=== PATIENT | male | born 1975 | race Caucasian/White ===

== ENCOUNTER 2019-08-28 12:32 | Outpatient (REF) | payer OTHER, SELFPAY ==
[2019-08-28 13:11] LABS: Abs Immature Grans 0.01 k/cumm (0.0-0.09); Absolute Basophil Count 0.03 k/cumm (0.0-0.2); Absolute Eosinophil Count 0.09 k/cumm (0.0-0.7); Absolute Lymphocyte Count 2.44 k/cumm (1.2-3.4); Absolute Monocyte Count 0.67 k/cumm (0.11-0.7); Absolute Neutrophil Count 3.67 k/cumm (1.2-6.7); Basophils % 0.4; Eosinophils % 1.3; HCT 42.2 % (40.0-50.0); HGB 14.5 g/dL (13.5-17.5); Immature Grans % 0.1; Lymphocytes % 35.3; Mean Corp. HGB Concentration 34.4 g/dL (32.0-36.0); Mean Corpuscular Hemoglobin 30.1 pg (27.0-33.0); Mean Corpuscular Volume 87.7 fL (80-95); Mean Platelet Volume 10.4 fL (8.0-11.0); Monocytes % 9.7; Neutrophils % 53.2; Platelet Count 294 x1000/uL (130-400); RBC 4.81 m/cumm (4.50-6.00); RBC Distribution Width 12.9 % (11.8-14.1); White Blood Cell Count 6.91 k/cumm (4.4-10.8)
[2019-08-28 13:36] LABS: ALT 36 U/L (16-63); AST 19 U/L (15-37); Alkaline Phosphatase 54 U/L (46-116); Anion Gap 10.9 mmol/L (3-11); BUN 13 mg/dL (7-18); Bilirubin, Total 0.5 mg/dL (0.2-1.0); CO2 25.1 mmol/L (21.0-32.0); CREATININE 0.92 mg/dL (0.70-1.30); Calcium 9.3 mg/dL (8.5-10.1); Chloride 106 mmol/L (98-107); Glucose 97 mg/dL (70-100); Potassium 3.8 mmol/L (3.5-5.1); Sodium 142 mmol/L (136-145); TSH (W/Ref FT4) 4.16 uIU/mL (0.36-3.74); Total Protein 6.9 g/dL (6.4-8.2)
[2019-08-28 13:56] LABS: FREE T4 0.97 ng/dL (0.76-1.46)
[2019-08-29 10:54] LABS: Lyme Ab w Rflx to Lyme Confirm Negative
[2019-08-30 17:28] LABS: Anaplasma phagocytophilum Negative (Negative); B. miyamotoi PCR Negative (Negative); Babesia divergens/MO-1 Negative (Negative); Babesia duncani Negative (Negative); Babesia microti Negative (Negative); Ehrlichia chaffeensis Negative (Negative); Ehrlichia ewingii/canis Negative (Negative); Ehrlichia muris eauclairensis Negative (Negative)
== END 2019-08-28 12:52 ==
LOC: NCHCN 12:32
PROVIDERS: PCP Nurse Practitioner Family; Visit Provider Internal Medicine
DX: M25.50 Pain in unspecified joint (principal); R53.81 Other malaise; W57.XXXA Bitten or stung by nonvenomous insect and other nonvenomous arthropods, initial encounter; T14.8XXA Other injury of unspecified body region, initial encounter
CPT/HCPCS: 80053; 87798; 84439; 84443; 85025; 86618

== ENCOUNTER → 2021-10-14 00:16 | Outpatient (CLI) | payer OTHER, SELFPAY ==
--- NOTE | 2021-10-14 14:30 | DI.RAD_ITS ---
Exam(s) XR CERVICAL SPINE COMP 4-5V EXAM: XR CERVICAL SPINE COMP 4-5V CLINICAL HISTORY: LT SHOULDER PAIN, M25.512. TECHNIQUE: 2D digital imaging was performed. COMPARISON: No exams were available for comparison FINDINGS: Is no evidence of fracture, listhesis, nor offset of the spinal laminar line. There is moderate disc space narrowing at C4-5 and C5-6 levels. C6-7 level exhibits normal disc heig ht. There are mild degenerative facet joint changes. On the oblique views there are bilateral Lusch ka joint osteophytes noted at C4-5, C5-6, and C6-7 levels. There are no cervical ribs. No osseous l esions. IMPRESSION: Multilevel degenerative disc disease as described above. DATA REPOSITORY: RADIATION DOSE DELIVERED:
== END ==
PROVIDERS: PCP Nurse Practitioner Family; Visit Provider Family Medicine
DX: M50.321 Other cervical disc degeneration at C4-C5 level (principal); M50.322 Other cervical disc degeneration at C5-C6 level; M47.812 Spondylosis without myelopathy or radiculopathy, cervical region; M25.512 Pain in left shoulder
CPT/HCPCS: 72050

== ENCOUNTER 2022-05-05 18:57 | Outpatient (CLI) | payer OTHER, SELFPAY ==
--- NOTE | 2022-05-05 | DI.RAD_ITS ---
Exam(s) XR WRIST LT COMP NAVICULAR EXAM: XR WRIST LT COMP NAVICULAR CLINICAL HISTORY: LT WRIST PAIN TO NAVICULAR, ATTENTION TO 2ND FINGER. TECHNIQUE: 2D digital imaging was performed. Four views. COMPARISON: CR XR HAND LT COMPLETE from 05/05/2022 FINDINGS: BONES: No acute fracture is present. No bony destructive lesion is seen. JOINTS: The carpal bones are normally aligned. SOFT TISSUE: Swelling over posterior wrist and metacarpal region. IMPRESSION: Posterior soft tissue swelling. No fracture identified. DATA REPOSITORY: RADIATION DOSE DELIVERED:
--- NOTE | 2022-05-05 | DI.RAD_ITS ---
Exam(s) XR HAND LT COMPLETE EXAM: XR HAND LT COMPLETE CLINICAL HISTORY: LT WRIST PAIN TO NAVICULAR, ATTENTION TO 2ND FINGER. TECHNIQUE: 2D digital imaging was performed. Three views. COMPARISON: No exams were available for comparison FINDINGS: BONES: No acute fracture is present. No bony destructive lesion is seen. JOINTS: No dislocation present. SOFT TISSUE: Soft tissue swelling over dorsum of hand. No gas collection or foreign body. IMPRESSION: Dorsal soft tissue swelling DATA REPOSITORY: RADIATION DOSE DELIVERED:
== END 2022-05-05 19:17 ==
LOC: DI 18:59
PROVIDERS: PCP Nurse Practitioner Family; Visit Provider Nurse Practitioner Family
DX: M79.89 Other specified soft tissue disorders (principal); M25.532 Pain in left wrist; S60.222A Contusion of left hand, initial encounter; X58.XXXA Exposure to other specified factors, initial encounter
CPT/HCPCS: 73110; 73130

== ENCOUNTER 2023-04-09 16:23 | Emergency (ER) | payer OTHER, SELFPAY ==
[2023-04-09 16:27] VITALS: BP 142/78; PULSE 58; RESP 18; TEMP 36.3; O2SAT 100
--- NOTE | 2023-04-09 16:30 | DI.RAD_ITS ---
Exam(s) XR TIB/FIB LT EXAM: XR TIB/FIB LT CLINICAL HISTORY: Calf pain. TECHNIQUE: 2D digital imaging was performed of the left tibia and fibula. Four images were obtained. AP and lateral views were obtained. COMPARISON: No exams were available for comparison FINDINGS: BONES: No acute fracture is present. No bony destructive lesion is seen. Visualized portion of knee a nd ankle joints are unremarkable. SOFT TISSUE: Normal. IMPRESSION: Unremarkable radiographs of the left tibia and fibula. DATA REPOSITORY: RADIATION DOSE DELIVERED:
--- NOTE | 2023-04-09 16:30 | W.ED.GENAD ---
Discharge Plan Disposition Patient Disposition: Home Discharge Details Clinical Impression: Traumatic rupture of left Achilles tendon Primary Care Provider: Terra Whatley ED Provider: Andre Cortez Home Meds and New Rx's Prescriptions: No Action No Known Home Meds Discharge Instructions Additional Instructions: You were seen in the emergency department for your ankle pain. Your exam showed an Achilles tendon rupture for which you should be nonweightbearing on your left lower extremity. Please use crutches. Please follow-up with orthopedics later this week. If you develop any numbness or tingling in your toes please return to the emergency department. For your pain please take medications as follows: 1. Take acetaminophen (Tylenol), 1,000 mg (two 500 mg tabs) every 6 hours 2. Take ibuprofen (Advil), 400 mg every 6 hours. Medical Decision Making This is an overall well-appearing normothermic and not tachycardic 48-year-old male with concern for Achilles tendon rupture given positive Junior test with patient's left ankle does not plantarflex when he is laying prone and his left calf is squeezed. He has been on no recent fluoroquinolones. His bedside ultrasound is also consistent with left Achilles tendon rupture. We will touch base with orthopedics following plain films to ensure that there is not a concurrent osseous abnormality. Anticipate nonweightbearing with crutches and walking boot with outpatient orthopedic referral. Will provide oral analgesia using acetaminophen and ibuprofen. No head strike to suggest benefit from CT head. No neck pain to suggest benefit from CT cervical spine. No proximal tibial tenderness to suggest Maisonneuve injury. No pain out of proportion to suggest necrotizing soft tissue infection. Compartments soft so not concern for compartment syndrome. No surrounding erythema to suggest cellulitis. No reported shortness of breath nor chest trauma and no hypoxia so my suspicion is exceedingly low for pneumothorax. I spoke with Dr. Ghotra from orthopedics who advised placing patient in a short leg splint with 45 degrees of plantarflexion. Patient reports that he has crutches at home and will make him nonweightbearing until he follows up with orthopedics. Please see my separate note concerning splint placement. Patient had his pain well managed on oral analgesia using acetaminophen and ibuprofen. As result we will defer oral opiates at this point in time to avoid exposing the patient to unnecessary side effects. Health community health advisor Miesha will have patient seen in follow-up by orthopedics. HPI General Date/Time Provider Initiated Documentation: 04/09/23 16:30. HPI Narrative: This is a previously healthy 48-year-old male with no history of allergies nor any medications in the emergency department in the setting of acute left ankle pain. Patient reports that he was walking in the [place] today. He inadvertently caught his left foot on a wet root causing him to slip. He forcefully dorsiflex his left foot. He did not hit his head. He is not feeling short of breath. He was in his usual state of health earlier today. He was wearing hiking boots at the time that his injury occurred. He has been ambulating with an antalgic gait subsequently. Related Data Home Medications Medication Instructions Recorded Confirmed Unknown [No Known Home Meds] 06/21/22 04/09/23 Allergies Allergy/AdvReac Type Severity Reaction Status Date / Time No Known Allergies Allergy Verified 06/21/22 13:12 General Stated Complaint: Orthopedic VENUS: 4 PFSH All Active Problems (Updated 04/09/23 @ 16:57 by Andre Cortez MD) Traumatic rupture of left Achilles tendon (Acute) Left hand pain (Acute) Tobacco abuse (Acute) Medical History Alcohol abuse Onychomycosis of toenail Subclinical hypothyroidism Thoracic back pain Social History Smoking/Tobacco Use Status: Never Smoking risk assessment performed?: Yes Alcohol Intake: never Drug use: Daily Substance use type: marijuana Do you feel safe at home: Yes Do you feel safe in your relationship?: Yes Exam Narrative Exam Narrative: General: Well-appearing in no acute distress speaking in complete sentences. Head: Normocephalic, atraumatic. Eye: Pupils equal, round reactive to light. Extraocular eye movements intact. No conjunctival injection. No scleral icterus. Ear, nose, mouth, throat: Grossly normal inspection. Normal voice, handling secretions normally. Neck: Trachea midline. Cardiovascular: Well-perfused distal extremities. Respiratory: Nonlabored respiration. Gastrointestinal: Nondistended abdomen. Musculoskeletal: Left lower extremity with no obvious deformities nor external signs of trauma. No ecchymoses or lacerations. There is a palpable deficit in the left Achilles tendon approximately 3 cm proximal to the calcaneus. Patient has a positive Junior test. With patient laying prone his left foot does not plantarflex when I squeeze his left calf. Patient has limited ability to dorsi and plantarflex secondary to pain on the left. Left foot warm well perfused with 2+ PT and DP pulses. Cap refill less than 2 seconds in the left toes. Patient has intact sensation in the dorsal webspace between his great and second toes on the left. Left lower extremity with no tenderness throughout quadriceps, knee, and proximal tibia. Soft compartments left lower extremity. Skin: Normal for age and race, grossly normal temperature and turgor. No acute rash. Neurologic: Alert and appropriate, no apparent acute deficits. Psychiatric: Mood and manner are appropriate. Grooming and personal hygiene are appropriate. Course Vital Signs Vital signs: Vital Signs Temperature 36.3 C L 04/09/23 16:27 Pulse 58 L 04/09/23 16:27 Respiratory Rate 18 04/09/23 16:27 Blood Pressure 142/78 H 04/09/23 16:27 Pulse Oximetry 100 04/09/23 16:27 Temperature 36.3 C L 04/09/23 16:27 Pulse 58 L 04/09/23 16:27 Respiratory Rate 18 04/09/23 16:27 Respiratory Effort Normal, Non-Labored 04/09/23 16:29 Blood Pressure 142/78 H 04/09/23 16:27 Pulse Oximetry 100 04/09/23 16:27 Oxygen Delivery Method Room Air 04/09/23 16:27 Oxygen Flow Rate 0 04/09/23 16:27 Pain Level 5 04/09/23 16:27 Procedures Orthopedic Splinting/Casting Injury #1: Side: left Lower Extremity Injury Location: lower leg Lower Extremity Immobilizer: posterior splint Other Orthopedic Equipment: crutches POCUS Exam (ED) Limited Soft Tissue Exam DATE OF EXAM: 04/09/23 TIME OF EXAM: 16:50 LOCATION OF EXAM: Lower extremity/left REASON FOR EXAM: Pain Exam Complete DIFFERENTIAL DIAGNOSES: Anechoic collection of fluid adjacent to linear mixed echogenicity structures that appear consistent with tendon. Exam concerning for Achilles tendon rupture.
[2023-04-09] MEDS: Acetaminophen 500 MG TAB 1000 MG PO (16:59)
[2023-04-09] MEDS: Ibuprofen 600 MG TAB PO (16:59)
--- NOTE | 2023-04-09 17:22 | DI.VRAD_ITS ---
PROCEDURE INFORMATION: Exam: XR Left Tibia and Fibula Exam date and time: 04/09/2023 5:05 PM Age: 48 years old Clinical indication: Other: Lower tib/fib/ankle pain, calf pain TECHNIQUE: Imaging protocol: Radiologic exam of the left tibia and fibula. Views: 2 views. COMPARISON: No relevant prior studies available. FINDINGS: Bones/joints: No fracture or dislocation. Joint spaces are unremarkable. Soft tissues: No significant abnormality IMPRESSION: No acute findings. Dictated and Authenticated by: Eloy Ceron MD. Ordering:SONAL Powell MD
[2023-04-09 17:56] VITALS: BP 141/94; PULSE 54; RESP 16; TEMP 36.4; O2SAT 99
--- NOTE | 2023-04-09 18:04 | NUR.NOTE ---
Nursing Note: ~ 1745 Dr Cortez at pt's bedside, pt repositioned self prone position, Dr Cortez splinted and aced wrapped pt's LLE, CMS intact;pt tolerated procedure well
== END 2023-04-09 18:18 | disposition home or self-care (01) ==
PROVIDERS: Emergency Provider Emergency Medicine; PCP Nurse Practitioner Family
DX: S86.012A Strain of left Achilles tendon, initial encounter (principal); W01.0XXA Fall on same level from slipping, tripping and stumbling without subsequent striking against object, initial encounter; Y93.01 Activity, walking, marching and hiking; Y92.828 Other wilderness area as the place of occurrence of the external cause
CPT/HCPCS: 29515; 76882; 99284; 73590; 99283

== ENCOUNTER 2023-04-20 01:55 | Outpatient (CLI) | payer OTHER, SELFPAY ==
--- NOTE | 2023-04-20 08:30 | DI.MRI_ITS ---
Exam(s) MR LOWER JOINT LT WO EXAM: MR LOWER JOINT LT WO CLINICAL HISTORY: PAIN, TRAUMATIC RUPTURE LT ACHILLES TENDON, S86.012A TECHNIQUE: Multiplanar multisequence MRI was performed without intravenous contrast. COMPARISON: CR,XR XR TIB/FIB LT from 04/09/2023 FINDINGS: BONES/JOINTS: No fracture or contusion pattern. No bone lesions identified. The talar dome is smooth. The ankle mortise is maintained. No joint effusion is present. LIGAMENTS: The tibiofibular and calcaneofibular ligaments are intact. The talofibular ligaments are i ntact. The deltoid ligament is intact. The syndesmosis is unremarkable. Sinus tarsi is normal. MUSCULOTENDINOUS STRUCTURES: Achilles tendon: There is a complete tear of the Achilles tendon 4.2 cm proximal to the insertion sit e onto the calcaneus. There is a small gap between the tendon ends of less than 1 cm. There is surr ounding edema. Plantar fascia: Visualized plantar fascia is unremarkable. Anterior Extensor tendons: Unremarkable. Posterior Tibialis: Unremarkable. Flexor Digitorum longus: Unremarkable. Flexor Hallucis longus: Unremarkable. Peroneus longus: Unremarkable. Peroneus brevis:Unremarkable. SOFT TISSUES: There is edema seen in the soft tissues posteriorly are around the Achilles tendon tear . OTHER FINDINGS: None. IMPRESSION: Complete tear of the Achilles tendon 4.2 cm from its insertion site onto the proximal calcaneus. The re is a gap of less than 1 cm between the tendon ends.There is associated edema in the surrounding so ft tissues. DATA REPOSITORY:
== END 2023-04-20 02:15 ==
LOC: DI 01:55
PROVIDERS: PCP Family Medicine; Visit Provider Student in an Organized Health Care Education/Training Program
DX: S86.012A Strain of left Achilles tendon, initial encounter (principal); X58.XXXA Exposure to other specified factors, initial encounter
CPT/HCPCS: 73721

== ENCOUNTER 2024-04-04 09:13 | Outpatient (REF) | payer OTHER, SELFPAY ==
[2024-04-04 14:54] LABS: Calculated LDL 127 mg/dL (<100); Cholesterol 201 mg/dL (<200); Glucose 105 mg/dL (74-106); HDL Cholesterol 59 mg/dL (40-60); TSH 5.06 uIU/Ml (0.36-3.74); Triglyceride 76 mg/dL (<150)
[2024-04-04 15:11] LABS: FREE T4 0.95 ng/dL (0.76-1.46)
[2024-04-11 16:58] LABS: Testosterone, Free 16.6 ng/dL (4.26-16.4); Testosterone, Total 606 ng/dL (240-950)
== END 2024-04-04 09:14 | disposition home or self-care (01) ==
LOC: NCHCN 09:13
PROVIDERS: PCP Family Medicine; Visit Provider Family Medicine
DX: Z00.00 Encounter for general adult medical examination without abnormal findings (principal); E02 Subclinical iodine-deficiency hypothyroidism; E78.5 Hyperlipidemia, unspecified; F52.21 Male erectile disorder; R79.89 Other specified abnormal findings of blood chemistry
CPT/HCPCS: 80061; 82947; 84402; 84403; 84439; 84443

== ENCOUNTER 2025-04-10 09:22 | Outpatient (REF) | payer OTHER, SELFPAY ==
[2025-04-10 14:44] LABS: TSH (W/Ref FT4) 3.41 uIU/mL (0.36-3.74)
[2025-04-10 23:25] LABS: Hepatitis C Ab w Rflx HCV PCR Negative (Negative)
[2025-04-10 23:28] LABS: HIV-1/2 Ag & Ab Screen Negative (Negative)
== END 2025-04-10 09:23 | disposition home or self-care (01) ==
LOC: NCHCN 09:22
PROVIDERS: PCP Family Medicine; Visit Provider Family Medicine
DX: Z00.00 Encounter for general adult medical examination without abnormal findings (principal); E02 Subclinical iodine-deficiency hypothyroidism
CPT/HCPCS: 86803; 87389; 84443

== ENCOUNTER 2025-07-05 16:49 | Emergency (ER) | payer OTHER, SELFPAY ==
[2025-07-05 16:52] VITALS: BP 149/91; PULSE 58; RESP 16; TEMP 36.8; O2SAT 97
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
[2025-07-05] MEDS: oxyCODONE 5 MG TAB PO ×2 (18:16→21:20)
[2025-07-05] MEDS: Ibuprofen 400 MG TAB PO (18:16)
[2025-07-05] MEDS: Acetaminophen 500 MG TAB 1000 MG PO (18:16)
--- NOTE | 2025-07-05 18:32 | DI.RAD_ITS ---
Exam(s) XR FOOT LT COMPLETE EXAM: XR FOOT LT COMPLETE CLINICAL HISTORY: fracture. TECHNIQUE: 2D digital imaging was performed of the left foot. Three images were obtained. AP, oblique and lateral views were obtained. COMPARISON: CT CT LOWER EXTREMITY LT WO from 07/05/2025 FINDINGS: BONES: There is again seen a comminuted intra-articular displaced fracture of the proximal 1st metatarsal. There is also nondisplaced fracture through the distal metaphysis of the 2nd metatarsal. There are findings suspicious for fracture of the lateral aspect of the head of the proximal phalanx of the 5th toe. JOINTS: No dislocation present. SOFT TISSUE: There is soft tissue swelling of the forefoot. IMPRESSION: Fractures involving the 1st and 2nd metatarsals as described above. Question of a fracture involving the head of the proximal phalanx of the 5th toe. DATA REPOSITORY: RADIATION DOSE DELIVERED:
== END 2025-07-05 21:20 | disposition home or self-care (01) ==
PROVIDERS: Emergency Provider Physician Assistant; PCP Family Medicine
DX: S92.312A Displaced fracture of first metatarsal bone, left foot, initial encounter for closed fracture (principal); S92.322A Displaced fracture of second metatarsal bone, left foot, initial encounter for closed fracture; W22.8XXA Striking against or struck by other objects, initial encounter; Y93.55 Activity, bike riding
CPT/HCPCS: 99284 ×2; 29515; 73630; 73700

== ENCOUNTER 2025-07-09 12:04 | Day surgery (SDC) | payer OTHER, SELFPAY ==
[2025-07-09] VITALS (15 sets, daily range): BP systolic 121–136; BP diastolic 74–87; PULSE 41–51; RESP 9–19; TEMP 36.1–36.4; O2SAT 94–98; BMI 34.2
[2025-07-09] MEDS: Acetaminophen 500 MG TAB 1000 MG PO (12:57)
[2025-07-09] MEDS: Celecoxib 200 MG CAP 400 MG PO (12:57)
[2025-07-09] MEDS: Lactated Ringers 1,000 ML 80 ML IV (13:10)
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
--- NOTE | 2025-07-09 13:30 | DI.RAD_ITS ---
Exam(s) XR FOOT LT LIMITED EXAM: XR FOOT LT LIMITED CLINICAL HISTORY: LEFT FOOT FRACTURE. TECHNIQUE: 2D and realtime digital imaging was performed. COMPARISON: CR XR FOOT LT COMPLETE from 07/05/2025 FINDINGS: Hard copy images show placement of a fixation plate the across the 1st metatarsal for fracture fixation. The alignment is now anatomic. Please see procedure note for details. Fluoro time: 60seconds RADIATION DOSE DELIVERED: [place] Landa=1.31 mGy
[2025-07-09] MEDS: ceFAZolin 2 GM/50 ML BAG IVPB (13:58)
[2025-07-09] MEDS: TRANEXAMIC ACID/SOD. CHL. 1,000 MG/100 ML BAG 600 MG IVPB (14:04)
[2025-07-09] MEDS: Bupivacaine 0.25% Pres-Free W/EPI 30 ML VIAL (15:55)
--- NOTE | 2025-07-09 16:14 | W.PM.DSUDISC ---
Date of service: 07/09/25 Discharge Plan Disposition Patient Disposition: Home Condition: Good Discharge Details Reason For Visit: Left First Metatarsal Fracture Attending Provider: David Ghotra Primary Care Provider: Alek Serrano Home Meds and New Rx's Prescriptions: New aspirin 81 mg tablet,delayed release (DR/EC) 81 mg PO BID Qty: 30 0RF acetaminophen 500 mg tablet 500 mg PO Q6H PRN PRN (Reason: pain) Qty: 60 3RF ibuprofen 600 mg tablet 600 mg PO TID PRN (Reason: pain) Qty: 90 3RF oxycodone 5 mg tablet 5 mg PO Q6H PRN (Reason: pain) Qty: 10 0RF Continued acetaminophen [Acetaminophen Extra Strength] 500 mg tablet 500 mg PO Q6H PRN Patient Comments: 1000 mg Q 6h ibuprofen [Advil] 200 mg tablet 200 mg PO Q6H Discharge Instructions Additional Instructions: 1st Metatarsal ORIF Discharge Instructions Activity: You are NON WEIGHT BEARING. You should keep the leg elevated as much as possible. You may wiggle your toes and move your hip and knee. Dressings: You should keep your splint clean and dry. Do NOT get wet or dirty. If you have issues with your splint, please call the office at [phone] or the hospital after hours. Medications: - You should take Tylenol and Ibuprofen around the clock for baseline pain. - You have been prescribed a stronger narcotic for breakthrough pain. - You should take a Baby Aspirin (81mg) twice a day for blood clot prevention. Follow-up: 2 weeks Stand Alone Forms: Anesthesia Discharge Kathy Waters (DSU) Equipment/Supplies: Non-Weight Bearing Crutches Activity:: Elevate Remove Dressings/Wound Care:: Do Not Remove Shower/Bathe:: Cover Diet:: As Tolerated Discharge Orders Discharge Orders: Discharge Order (Routine); Ordered 07/09/25 Ordered By: David Ghotra DS: Diagnosis Discharge Diagnosis (1) Displaced fracture of first metatarsal bone, left foot, initial encounter for closed fracture: Status: Acute
--- NOTE | 2025-07-09 16:31 | W.PM.OP ---
Operative Note Operative Note PRE-OP DIAGNOSIS: Left 1st Metatarsal Fracture POST-OP DIAGNOSIS: same PROCEDURE: Open Reduction and Internal Fixation of Left First Metatarsal Fracture SURGEON: David Ghotra [employer] WORKER: Joan Salomon ANESTHESIA TYPE: General LMA/ETT Refer to Anesthesia Record ESTIMATED BLOOD LOSS: 20 PATHOLOGY: none sent TOURNIQUET TIME: 0 COMPLICATIONS: None Patient was transported to: PACU Patient's condition: stable Implants: Synthes 2.7mm T-plate Indications: Andre is an active 50 year old who suffered a comminuted, intra-articular fracture of the first metatarsal of the left foot. I reviewed the possible treatment options and given the fracture pattern and charachteristics, I recommended operative fixation. I discussed the technical details of the surgery. I reviewed the risks such as bleeding, infection, pain, stiffness, malunion, nonunion, hardware prominence, hardware faiilure, arthritis, damage to nerves and vessels, blood clot. Despite these risks, he agreed to proceed. Findings: There was a comminuted fracture of the first metatarsal with a split at the level of the joint with 2 primary components which was reduced with a lag screw. The remainder of the fracture was then secured with a 2.7 mm T plate. Procedure Description: Andre was greeted in the preoperative area. Consent was reviewed and signed. He was transferred to the operating room table. General anesthesia was administered. All bony prominences were well padded. Arms were placed out to the side, padded, and secured. A single dose of TXA, 1 gram, was then administered IV. Prophylactic antibiotics, Cefazolin 2 grams, was given for prophylactic antibiotics. A timeout was performed for safe surgery. The left leg was prepped with Chloraprep. The leg was draped with a stockinette and extremity drape. The proposed incision was drawn on the dorsal medial aspect of the left foot medial to the EHL tendon. This proposed surgical site was then injected with 0.25% bupivacaine with epinephrine. The skin was incised sharply and taken down to subcutaneous tissue there is notable edema within the soft tissues. The interval just medial to the extensor houses longus of utilized to get down to bone. The deeper fascia was incised. Crossing venous structures were cauterized. Fracture site over the dorsal?proximal aspect of the first metatarsal was identified and a jarquin elevator was utilized to expose the dorsal medial aspect of the first metatarsal shaft. There was a defect in the capsule of the first TMT joint. This was elevated back to expose the medial surface of the first TMT joint. The dorsal segment of the proximal fragment the first metatarsal was quite unstable whereas the plantar segment was still affixed in anatomic position to the medial cuneiform through likely plantar ligaments. The fracture line which had an apex dorsal deformity was also identified and periosteal tissue was elevated back for exposure of the fracture ends for reduction management. The joint distractor was placed to decompress the first TMT joint. A K wire is placed in the medial cuneiform and also within the diaphysis of the first metatarsal and distraction was placed across the first TMT joint. This allowed the manipulation of the proximal fragment the first metatarsal. The plantar segment did not displace very much as it was still attached plantar ligaments but was able to be manipulated enough to identify its edge. I then used a K wire to help joystick to manipulate the dorsal fragment back onto the base fragment and then secured it with a K wire into the plantar segment. This appeared to be reduced. X-ray confirmed appropriate positioning. I then placed a 2.4 millimeter screw in lag fashion to lag these 2 pieces together. This had excellent purchase. I then used a 2.7 mm T plate to secure the remainder of the fracture fragments. This was placed on the bone and x-rays taken. This showed to be 1 hole too long and therefore 1 hole was cut and the edges were smoothed. I contoured the proximal T portion of the plate to fit the curve of the base of the first metatarsal. The remainder of the fracture was reduced utilizing the single fracture line dorsally as the guide. This was manual manipulated and reduced into position and held with a crossing K wire. The T plate was then placed onto the bone into what appeared to be of appropriate position. X-ray was used to confirm appropriate positioning of the plate. With this now position was held and proximal screws were placed. These were nonlocking screws, 2.7 mm, placed in attempts to grab the dorsal and plantar proximal fragments together securing the base of the first metatarsal for security of the first TMT joint. These had excellent purchase into the bone. X-ray once again confirmed that these were not violating the first TMT joint and were appropriate length. 3 additional screws were placed distally. There were 2 cortical 2.7 millimeter screws placed as well as a single 2.7 mm locking screw. Final x-rays were obtained which showed appropriate reduction without joint penetration and with appropriate screw length. The wound was then thoroughly irrigated. Deep tissues were injected with 0.25% bupivacaine with epinephrine. Some of the fascia and capsule of the first MTP joint was closed with #0 Vicryl. Deep tissue was closed with 2-0 Vicryl. Skin was closed with 4-0 nylon. Wounds were dressed with Xeroform, 4 x 4's, ABD, gauze, Webril. He is then placed into a short posterior leg splint. At the end of the case, all counts were correct. Andre tolerated the procedure well without known complication and was taken to the PACU for recovery. He will remain nonweightbearing with a splint. Anticoagulation of aspirin 81 mg twice daily will begin tomorrow. He should keep the leg elevated. X-rays in 2 weeks with likely transition to fracture walker boot. Date of Procedure: 07/09/25
--- NOTE | 2025-07-09 16:45 | W.ANESPOSTOP ---
Postoperative Evaluation Date, Time and Location Date Performed: 07/09/25 Time Performed: 16:45 Patient Location: Day Surgery Unit Vital Signs Most Recent Imported Vital Signs: Most Recent Vital Signs Temp Pulse Resp BP Pulse Ox 36.3 C L 51 L 11 L 131/78 95 07/09/25 16:43 07/09/25 16:31 07/09/25 16:31 07/09/25 16:31 07/09/25 16:31 Pain Score Most Recent Pain Score: Most Recent Pain Score Pain Level 4 07/09/25 16:43 Assessment Mental Status: Awake (Alert & Oriented to Patient Baseline) Airway and Respiratory Function: Patent airway with normal (patient baseline) respiratory exam Cardiovascular Function: Hemodynamically Stable Hydration Status: Adequately Hydrated Nausea & Vomiting: No Nausea or Vomiting Pain: Pain is Moderate or Severe Postoperative Pain Management: Pain being addressed with medication Peripheral Nerve Block: Patient did not receive a nerve block
[2025-07-09] MEDS: oxyCODONE 5 MG TAB PO (17:00)
--- NOTE | 2025-07-11 11:26 | NUR.NOTE ---
Accessed Pt chart to give phone number to [facility].
== END 2025-07-09 18:15 | disposition home or self-care (01) ==
PROVIDERS: PCP Family Medicine; Visit Provider Student in an Organized Health Care Education/Training Program
PROC: (CPT 28485; principal; 2025-07-09 15:15)
DX: S92.312A Displaced fracture of first metatarsal bone, left foot, initial encounter for closed fracture (principal); F10.10 Alcohol abuse, uncomplicated; F17.290 Nicotine dependence, other tobacco product, uncomplicated; F12.90 Cannabis use, unspecified, uncomplicated; B35.1 Tinea unguium; W22.8XXA Striking against or struck by other objects, initial encounter; Y93.55 Activity, bike riding
CPT/HCPCS: 28485; 76000; 73620; J0690; J1100; J2003; J2250; J2405; J2704; J3010

== ENCOUNTER 2025-07-22 15:00 | Outpatient (CLI) | payer OTHER, SELFPAY ==
--- NOTE | 2025-07-22 14:15 | DI.RAD_ITS ---
Exam(s) XR FOOT LT COMPLETE EXAM: XR FOOT LT COMPLETE CLINICAL HISTORY: 1ST POST OP S/P ORIF 1ST MT FX. TECHNIQUE: 2D digital imaging was performed. Three images were obtained. AP, lateral and oblique views were obtained. COMPARISON: CR XR FOOT LT COMPLETE from 07/05/2025 XA XR FOOT LT LIMITED from 07/09/2025 FINDINGS: BONES: There are stable post operative changes of reduction and internal fixation of the 1st metatarsal fracture present. The alignment is near anatomic. There is no significant change in alignment of the fracture involving the distal metaphysis of the 2nd metatarsal. The osseous fragments adjacent to the head of the proximal phalanx of the 5th toe are also stable. No new fracture or dislocation. JOINTS: The joint spaces are well maintained. SOFT TISSUE: There is soft tissue swelling of the midfoot. IMPRESSION: 1. Stable alignment of the 1st metatarsal fracture in the orthopedic hardware. 2. Stable fracture involving the 2nd metatarsal. 3. Stable osseous densities adjacent to the head of the proximal phalanx of the 5th toe. DATA REPOSITORY: RADIATION DOSE DELIVERED:
== END 2025-07-22 15:01 | disposition home or self-care (01) ==
LOC: DIORS 15:00
PROVIDERS: PCP Family Medicine; Visit Provider Student in an Organized Health Care Education/Training Program
DX: S92.312A Displaced fracture of first metatarsal bone, left foot, initial encounter for closed fracture (principal)
CPT/HCPCS: 73630

== ENCOUNTER 2025-08-19 15:17 | Outpatient (CLI) | payer OTHER, SELFPAY ==
--- NOTE | 2025-08-19 14:00 | DI.RAD_ITS ---
Exam(s) XR FOOT LT COMPLETE EXAM: XR FOOT LT COMPLETE CLINICAL HISTORY: S/P ORIF L METATARSAL. TECHNIQUE: 2D digital imaging was performed. Three views. COMPARISON: CR XR FOOT LT COMPLETE from 07/05/2025 CR XR FOOT LT COMPLETE from 07/22/2025 FINDINGS: BONES: Stable hardware and fracture alignment at the 1st metatarsal. Some interval fracture healing. 2nd metatarsal fracture also shows increased healing. Small defect of the lateral aspect of the proximal phalanx of the little toe appears unchanged. SOFT TISSUE: Mild dorsal soft tissue swelling. IMPRESSION: Stable fracture and hardware alignment. DATA REPOSITORY: RADIATION DOSE DELIVERED:
== END 2025-08-19 15:18 | disposition home or self-care (01) ==
LOC: DIORS 15:17
PROVIDERS: PCP Family Medicine; Visit Provider Student in an Organized Health Care Education/Training Program
DX: S92.322A Displaced fracture of second metatarsal bone, left foot, initial encounter for closed fracture (principal)
CPT/HCPCS: 73630

== ENCOUNTER 2025-09-30 14:35 | Outpatient (CLI) | payer OTHER, SELFPAY ==
--- NOTE | 2025-09-30 13:15 | DI.RAD_ITS ---
Exam(s) XR FOOT LT COMPLETE EXAM: XR FOOT LT COMPLETE CLINICAL HISTORY: F/U L FOOT. TECHNIQUE: 2D digital imaging was performed of the left foot. Three images were obtained. AP, oblique and lateral views were obtained. COMPARISON: CR XR FOOT LT COMPLETE from 07/05/2025 CR XR FOOT LT COMPLETE from 08/19/2025 FINDINGS: BONES: There are stable postsurgical changes of internal fixation of the comminuted left 1st metatarsal fracture. Callus formation has developed about the fracture consistent with some interval healing. The 2nd metatarsal fracture has healed. No bony destructive lesion is seen. JOINTS: No dislocation present. SOFT TISSUE: Normal. IMPRESSION: 1. Healing 1st metatarsal fracture. 2. Healed 2nd metatarsal fracture. DATA REPOSITORY: RADIATION DOSE DELIVERED:
== END 2025-09-30 14:36 | disposition home or self-care (01) ==
LOC: DIORS 14:35
PROVIDERS: PCP Family Medicine; Visit Provider Student in an Organized Health Care Education/Training Program
DX: S92.322A Displaced fracture of second metatarsal bone, left foot, initial encounter for closed fracture (principal)
CPT/HCPCS: 73630